=== PATIENT | male | born 1960 | race Caucasian/White ===

== ENCOUNTER 2020-06-03 09:45 | Inpatient (IN) | payer MEDICAID, OTHER ==
[~2020-06-03] VITALS: Ht 172.7 cm; Wt 61.7 kg
[2020-06-03] MEDS ORDERED: SODIUM CHLORIDE 0.9% 1,000 ML IV ONE (10:00)
[2020-06-03] MEDS ORDERED: OLANZAPINE 10 MG/VIAL IM ONE (10:00)
[2020-06-03] MEDS ORDERED: LORAZEPAM 2MG/ML CPJ IM ONE (10:00)
[2020-06-03 10:35] LABS: HEMATOCRIT. 39.6 % (42.0-52.0); HEMOGLOBIN. 13.7 g/dL (14.0-18.0); MEAN CORPUSCULAR HEMOGLOBIN 30.9 pg (28.0-32.0); MEAN CORPUSCULAR VOLUME 89.7 fL (80.0-94.0); PLATELET 144 x1000/uL (130-400); RED BLOOD CELL COUNT 4.42 mill/uL (4.7-6.1); RED CELL DISTRIBUTION WIDTH 13.2 % (11.6-14.6)
[2020-06-03 10:42] LABS: CHLORIDE 102 mEq/L (98-107)
[2020-06-03 10:47] LABS: ETHANOL BLOOD < 10 mg/dL
[2020-06-03] MEDS ORDERED: LORAZEPAM 2MG/ML CPJ IV ONE (11:00)
[2020-06-03] MEDS ORDERED: FOLIC ACID 1 MG, THIAMINE HCL 100 MG, MVI, ADULT NO.1 10 ML in DEXTROSE 5% WATER 1,000 ML IV ONE ×4 (11:00)
[2020-06-03] MEDS ORDERED: LORAZEPAM 2MG/ML CPJ IV SCH (11:00)
[2020-06-03 11:14] LABS: PLATELET ESTIMATE NORMAL
[2020-06-03 11:15] LABS: CREATINE KINASE MB FRACTION 9.5 ng/mL (0.5-3.6)
[2020-06-03] MEDS ORDERED: ONDANSETRON HCL 4MG/2ML INJ IV PRN (12:45)
[2020-06-03] MEDS ORDERED: ZOLPIDEM TARTRATE 5MG TABLET PO PRN (12:45)
[2020-06-03] MEDS ORDERED: ACETAMINOPHEN 325MG TABLET PO PRN ×2 (12:45)
[2020-06-03] MEDS ORDERED: KETOROLAC 15MG/ML VIAL IV PRN (12:45)
[2020-06-03] MEDS ORDERED: IPRATROPIUM/ALBUTEROL 0.5-3(2.5)MG/3ML NEB ORI PRN (12:45)
[2020-06-03] MEDS ORDERED: MAGNESIUM/ALUMINUM HYDROXIDE/SIMETHICONE 30ML UDC PO PRN (12:45)
[2020-06-03] MEDS ORDERED: CLONIDINE 0.1MG TABLET PO PRN (12:45)
[2020-06-03] MEDS ORDERED: LORAZEPAM 2MG/ML CPJ IV PRN (12:45)
[2020-06-03] MEDS ORDERED: GUAIFENESIN 200MG/10ML SUGAR FREE UDC PO PRN (12:45)
[2020-06-03] MEDS ORDERED: NITROGLYCERIN 0.4MG TABLET SL SL PRN (12:45)
[2020-06-03] MEDS ORDERED: DOCUSATE SODIUM 100MG CAPSULE PO PRN (12:45)
[2020-06-03] MEDS: ENOXAPARIN 40MG/0.4ML SYR SUBCUT SCH (13:00)
[2020-06-03] MEDS: SODIUM CHLORIDE 0.9% 1,000 ML IV SCH (13:08)
[2020-06-03 15:23] LABS: CREATINE KINASE MB FRACTION 16.2 ng/mL (0.5-3.6)
[2020-06-03 15:47] LABS: FOLIC ACID (FOLATE) SERUM >20 ng/mL ng/mL (>5.38)
[2020-06-03 16:00] LABS: VITAMIN B12 SERUM 533 pg/mL (211-911)
[2020-06-03] MEDS ORDERED: HALOPERIDOL LACTATE 5MG/ML VIAL IM PRN (16:15)
[2020-06-03 21:47] LABS: CLARITY URINE TURBID (CLEAR); COLOR URINE RED (YELLOW); KETONES URINE 2+ (NEGATIVE); LEUKOCYTE ESTERASE URINE 2+ (NEGATIVE); NITRITE URINE POSITIVE (NEGATIVE); OCCULT BLOOD URINE 3+ (NEGATIVE); PH URINE 5.5 (4.5-8.0); PROTEIN URINE 3+ (NEGATIVE)
[2020-06-03 22:07] LABS: CANNABINOID URINE SCREEN NEGATIVE (NEGATIVE)
[2020-06-03 22:09] LABS: *AMPHETAMINES SCREEN URINE PRESUMTIVE POSITIVE (NEGATIVE); *BARBITURATES SCREEN URINE NEGATIVE (NEGATIVE); *BENZODIAZEPINES SCREEN URINE NEGATIVE (NEGATIVE); *COCAINE SCREEN URINE NEGATIVE (NEGATIVE); METHADONE URINE SCREEN NEGATIVE (NEGATIVE); OPIATES URINE SCREEN NEGATIVE (NEGATIVE); PHENCYCLIDINE URINE SCREEN NEGATIVE (NEGATIVE)
[2020-06-03 23:00] VITALS: BP 111/78
[2020-06-03 23:51] LABS: CREATINE KINASE MB FRACTION 60.9 ng/mL (0.5-3.6)
[2020-06-04] MEDS: SODIUM CHLORIDE 0.9% 1,000 ML IV SCH ×3 (00:02→18:37)
[2020-06-04 04:00] VITALS: BP 101/67
[2020-06-04 08:00] VITALS: BP 104/72
[2020-06-04] MEDS: ENOXAPARIN 40MG/0.4ML SYR SUBCUT SCH (09:25)
[2020-06-04] MEDS: PANTOPRAZOLE SODIUM 40 MG/VIAL IV SCH (09:25)
[2020-06-04 12:00] VITALS: BP 99/71
[2020-06-04 16:00] VITALS: BP 109/67
[2020-06-04 20:00] VITALS: BP 105/62
[2020-06-05] VITALS: BP 137/63
[2020-06-05] MEDS: SODIUM CHLORIDE 0.9% 1,000 ML IV SCH ×2 (03:07→18:06)
[2020-06-05 04:00] VITALS: BP 96/54
[2020-06-05 07:13] LABS: BASOPHILS % 0.2 % (0.0-2.0); EOSINOPHILS % 4.7 % (0.0-5.0); HEMATOCRIT. 32.2 % (42.0-52.0); HEMOGLOBIN. 11.2 g/dL (14.0-18.0); LYMPHOCYTES % 37.3 % (20.0-50.0); MEAN CORPUSCULAR VOLUME 88.7 fL (80.0-94.0); MEAN PLATELET VOLUME 9.3 fl (7.4-10.4); MONOCYTES % 10.7 % (2.0-8.0); NEUTROPHILS % 47.1 % (40.0-76.0); PLATELET 105 x1000/uL (130-400); RED BLOOD CELL COUNT 3.63 mill/uL (4.7-6.1); RED CELL DISTRIBUTION WIDTH 13.4 % (11.6-14.6)
[2020-06-05 07:16] LABS: CHLORIDE 109 mEq/L (98-107)
[2020-06-05 07:30] LABS: PHOSPHORUS 2.3 mg/dL (2.5-4.9)
[2020-06-05 07:43] LABS: CREATINE KINASE 3745 IU/L (39-308)
[2020-06-05 08:00] VITALS: BP 118/61
[2020-06-05] MEDS: PANTOPRAZOLE SODIUM 40 MG/VIAL IV SCH (08:41)
[2020-06-05] MEDS: ENOXAPARIN 40MG/0.4ML SYR SUBCUT SCH (08:41)
[2020-06-05] MEDS ORDERED: POTASSIUM CHLORIDE 20MEQ/PACKET PO NR (09:00)
[2020-06-05] MEDS ORDERED: POTASSIUM PHOS,M-BASIC-D-BASIC 10 MMOL in DEXT 5% WATER 246.6667 ML IV SCH (11:00)
[2020-06-05 12:00] VITALS: BP 107/60
[2020-06-05 16:00] VITALS: BP 101/63
[2020-06-05 20:00] VITALS: BP 111/58
[2020-06-06] VITALS: BP 120/54
[2020-06-06] MEDS: SODIUM CHLORIDE 0.9% 1,000 ML IV SCH (01:01)
[2020-06-06 04:00] VITALS: BP 108/65
[2020-06-06 08:00] VITALS: BP 116/73
[2020-06-06] MEDS: FAMOTIDINE 20MG/2ML VIAL IV SCH ×2 (10:36→22:24)
[2020-06-06] MEDS: ENOXAPARIN 40MG/0.4ML SYR SUBCUT SCH (10:43)
[2020-06-06 12:00] VITALS: BP 99/65
[2020-06-06 15:44] VITALS: BP 96/61
[2020-06-06 20:00] VITALS: BP 129/75
[2020-06-07] VITALS: BP 143/81
[2020-06-07] MEDS: SODIUM CHLORIDE 0.9% 1,000 ML IV SCH ×4 (02:12→17:53)
[2020-06-07 04:00] VITALS: BP 105/53
[2020-06-07 07:30] VITALS: BP 108/66
[2020-06-07] MEDS: FAMOTIDINE 20MG/2ML VIAL IV SCH ×2 (07:35→21:41)
[2020-06-07] MEDS: ENOXAPARIN 40MG/0.4ML SYR SUBCUT SCH (07:43)
[2020-06-07 12:00] VITALS: BP 111/60
[2020-06-07 16:28] VITALS: BP 104/60
[2020-06-07 20:00] VITALS: BP 105/60
[2020-06-08 00:03] VITALS: BP 103/57
[2020-06-08] MEDS: SODIUM CHLORIDE 0.9% 1,000 ML IV SCH ×2 (02:37→08:45)
[2020-06-08 04:00] VITALS: BP 131/72
[2020-06-08] MEDS: FAMOTIDINE 20MG/2ML VIAL IV SCH (08:32)
[2020-06-08] MEDS: ENOXAPARIN 40MG/0.4ML SYR SUBCUT SCH (08:32)
[2020-06-08 15:10] VITALS: BP 123/76
== END 2020-06-08 15:15 | disposition home or self-care (01) | DRG 351 ==
LOC: ER 09:45 → 6WST 12:26 → EDBEDREQ 12:34 → ENRESERV 21:10
PROVIDERS: ADMIT Internal Medicine; ATTEND Internal Medicine
DX: M62.82 Rhabdomyolysis (principal); G92 Toxic encephalopathy; D63.8 Anemia in other chronic diseases classified elsewhere; E16.2 Hypoglycemia, unspecified; E43 Unspecified severe protein-calorie malnutrition; E83.39 Other disorders of phosphorus metabolism; E87.6 Hypokalemia; F10.10 Alcohol abuse, uncomplicated; F16.10 Hallucinogen abuse, uncomplicated; S00.81XA Abrasion of other part of head, initial encounter; X58.XXXA Exposure to other specified factors, initial encounter; Y93.89 Activity, other specified; Y92.89 Other specified places as the place of occurrence of the external cause; Y99.8 Other external cause status; Z68.20 Body mass index [BMI] 20.0-20.9, adult
CPT/HCPCS: 36415; 70486; 80053; 80061; 80305; 80307; 80320; 80329; 81003; 82550; 82553; 82607; 82746; 82962; 83036; 83540; 83550; 83735; 84100; 84484; 85025; 87426; 87804; 93005; 93970; 97116; 97162; 97166; 99285; C9113; J1650; J2060; J3411; J3490; J7030; J7060; J7070; G0480

== ENCOUNTER 2021-05-10 16:56 | Emergency (ER) | payer MEDICAID ==
[~2021-05-10] VITALS: Ht 170.2 cm; Wt 90.0 kg
[2021-05-10 22:25] VITALS: BP 129/81
== END 2021-05-10 22:27 | disposition home or self-care (01) ==
LOC: ER 17:01
DX: R60.0 Localized edema (principal)
CPT/HCPCS: 93971; 99284; Z7610